=== PATIENT | female | born 1955 | race Caucasian/White ===

== ENCOUNTER 2017-09-23 10:55 | Emergency (ER) | payer SELFPAY ==
[~2017-09-23] VITALS: Ht 175.3 cm; Wt 102.0 kg
[~2017-09-23 10:55] MED LIST: PAXI20TA26 PO; PRIL40CA PO; ZOFR4TAB3 SL
[2017-09-23 11:00] VITALS: BP 171/90; PULSE 87; RESP 18; TEMP 98.3; O2SAT 95
[2017-09-23] MEDS ORDERED: AMLO10TA2 PO (11:22)
[2017-09-23] MEDS ORDERED: PAXI10TA8 PO (11:22)
--- NOTE | 2017-09-23 11:41 | PD ---
HPI Chief Complaint: Oral / Dental Pain or Problem Time Seen by Provider: 11:28 Travel History International Travel<30 days: No Contact w/Intl Traveler<30days: No Traveled to known affect area: No History of Present Illness HPI 62-year-old female presents to the emergency department with complaint of the left lower infected tooth, jaw pain swelling since Monday. Denies fever, vomiting. Denies throat pain, difficulty swallowing, unusual drooling, lump in throat. Rates pain 10/10. Has been taking ibuprofen for symptom management. Pain is constantly aggravated. Describes as throbbing and pressure. Allergies to sulfa. Primary care provider is Dr. Ozuna. History of hypertension and anxiety. Has no other medical complaints. No other modifying factors or associated signs and symptoms. PFSH Past Medical History Anxiety: Yes Cardiovascular Problems: Yes Hypertension: Yes Psychiatric: Yes Tetanus Vaccination: > 5 Years Influenza Vaccination: No Tubal Ligation: Yes Social History Alcohol Use: Yes (OCC) Tobacco Use: Yes (ppd) Substance Use: No Allergies-Medications (Allergen,Severity, Reaction): Coded Allergies: Sulfa (Sulfonamide Antibiotics) (Unverified Allergy, Severe, Anaphylaxis, 09/23/17) Reported Meds & Prescriptions Reported Meds & Active Scripts Active Peridex Liq (Chlorhexidine Gluconate (Mouth) Liq) 0.12% Soln 15 Ml SWISH-SPIT BID 10 Days Deltasone (Prednisone) 20 Mg Tab 40 Mg PO DAILY 4 Days start 09/24/2017 Tramadol (Tramadol HCl) 50 Mg Tab 50 Mg PO Q4H PRN Clindamycin (Clindamycin HCl) 150 Mg Cap 450 Mg PO Q6H 10 Days Reported Amlodipine (Amlodipine Besylate) 10 Mg Tab 10 Mg PO DAILY Paxil (Paroxetine HCl) 10 Mg Tab 20 Mg PO DAILY Review of Systems Except as stated in HPI: all other systems reviewed are Neg Physical Exam Narrative GENERAL: Well-nourished, well-developed female patient, in no acute distress; afebrile, nontoxic-appearing SKIN: Warm and dry. HEAD: Atraumatic. Normocephalic. Left lower mandibular area with very minimal facial edema and with tenderness on palpation; without erythema. No lymphadenopathy. EYES: Pupils equal and round. No scleral icterus. No injection or drainage. ENT: Mucosa pink and moist. No erythema or exudates. No uvular edema. No uvular , palatal, or tonsillar deviation. Airway patent. EARS: Bilateral pinnae and external canals appear within normal limits. Bilateral tympanic membranes without erythema, dullness or perforation. MOUTH: Mucous membranes moist, no lesions, tongue and gums appear normal. Partially edentulous. Poor dentition throughout. Tooth #22 with tenderness on palpation. Surrounding gingiva is with edema and without fluctuance, erythema, drainage. No obvious abscess noted. NECK: Trachea midline. No lymphadenopathy. CARDIOVASCULAR: Regular rate. RESPIRATORY: No accessory muscle use. GASTROINTESTINAL: Obese. MUSCULOSKELETAL: No obvious deformities. No clubbing. No cyanosis. No edema. NEUROLOGICAL: Awake and alert. Oriented 3. No obvious cranial nerve deficits. Motor grossly within normal limits. Normal speech. PSYCHIATRIC: Appropriate mood and affect; insight and judgment normal. Data Data Last Documented VS Vital Signs Date Time Temp Pulse Resp B/P (MAP) Pulse Ox O2 Delivery O2 Flow Rate FiO2 09/23/17 11:18 17 09/23/17 11:00 98.3 87 171/90 (117) 95 Orders Orders Clindamycin (Cleocin) (09/23/17 11:45) Prednisone (Deltasone) (09/23/17 11:45) Ed Discharge Order (09/23/17 11:44) MDM Medical Decision Making Medical Screen Exam Complete: Yes Emergency Medical Condition: Yes Medical Record Reviewed: Yes Differential Diagnosis Dental abscess, dentalgia, gingivitis, infected dental carry Narrative Course 62-year-old female with gingival swelling that appears to be a dental abscess but the areas without fluctuance, erythema, drainage. She has very minimal edema to the left lower mandibular area. I discussed giving an dose of IV antibiotics here in the emergency department and the patient says she needs to catch the bus and would prefer oral treatment at this time. Clindamycin 450 mg , Deltasone ordered. I offered the patient pain medication and she declined. Patient says she has a dentist she can follow-up with and does not need emergency dental information sheet. Minimizing, Peridex mouth rinse, Deltasone , tramadol prescribed for home. Instructed patient to follow up with primary care provider. Patient verbalizes understanding and agreement with treatment plan. Patient is medically cleared and stable for discharge. Discussed reasons to return to the emergency department. Patient agrees with treatment plan. The patients vital signs are stable and the patient is stable for outpatient follow-up and treatment. Patient discharged home, stable and in no acute distress. Diagnosis Primary Impression: Dental abscess Referrals: Dentist Primary Care Physician Patient Instructions: Dental Abscess (ED), General Instructions Additional Instructions: Complete full course of antibiotics Ibuprofen or Tylenol as directed and as needed to reduce pain and inflammation Use Peridex as directed for oral hygiene Warm or cool compresses to the affected area Follow-up with dentist Follow-up with primary care provider Return to emergency department immediately with worsening of symptoms Med/Other Pt SpecificInfo: Prescription(s) given Scripts Chlorhexidine Gluconate (Mouth) Liq (Peridex Liq) 0.12% Soln 15 ML SWISH-SPIT BID for 10 Days, #300 ML 0 Refills Prov: Lizbeth Fuentes 09/23/17 Prednisone (Deltasone) 20 Mg Tab 40 MG PO DAILY for 4 Days, #8 TAB 0 Refills start 09/24/2017 Prov: Lizbeth Fuentes 09/23/17 Tramadol (Tramadol) 50 Mg Tab 50 MG PO Q4H Y for PAIN, #8 TAB 0 Refills Prov: Lizbeth Fuentes 09/23/17 Clindamycin (Clindamycin) 150 Mg Cap 450 MG PO Q6H for Infection for 10 Days, #120 CAP 0 Refills Prov: Lizbeth Fuentes 09/23/17 Disposition: 01 DISCHARGE HOME Condition: Stable Lizbeth Fuentes Sep 23, 2017 11:41
[2017-09-23] MEDS ORDERED: CLIN150C14 PO (11:43)
[2017-09-23] MEDS ORDERED: TRAM50TA PO (11:43)
[2017-09-23] MEDS ORDERED: PRED-503 PO (11:43)
[2017-09-23] MEDS ORDERED: PERI0.126 SWISH-SPIT (11:44)
[2017-09-23] MEDS ORDERED: CLINDAMYCIN 150 MG CAP PO ONE (11:45)
[2017-09-23] MEDS ORDERED: predniSONE 20 MG TAB PO ONE (11:45)
== END 2017-09-23 11:57 | disposition home or self-care (01) ==
LOC: NEPD 10:55
DX: K04.7 Periapical abscess without sinus (principal); I10 Essential (primary) hypertension; F41.9 Anxiety disorder, unspecified; F17.200 Nicotine dependence, unspecified, uncomplicated; Z88.2 Allergy status to sulfonamides; Z79.899 Other long term (current) drug therapy
CPT/HCPCS: 99283; J7512